=== PATIENT | male | born 1980 | race African-American/Black ===

== ENCOUNTER 2017-04-13 15:34 | Emergency (ER) | payer OTHER ==
[2017-04-13 15:48] VITALS: BP 155/81; PULSE 65; TEMP 98; BMI 27.1
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
== END 2017-04-13 16:24 | disposition home or self-care (01) ==
LOC: JER 15:34 → JERFT 15:34
DX: M54.5 Low back pain (principal); V49.49XA Driver injured in collision with other motor vehicles in traffic accident, initial encounter; Y92.415 Exit ramp or entrance ramp of street or highway as the place of occurrence of the external cause; Y99.0 Civilian activity done for income or pay; Y93.89 Activity, other specified
CPT/HCPCS: 99281-25

== ENCOUNTER 2017-11-06 19:30 | Emergency (ER) | payer OTHER ==
[2017-11-06 19:48] VITALS: BP 141/82; PULSE 75; TEMP 98.4; BMI 25.4
[2017-11-06] MEDS ORDERED: IBUPROFEN 400 MG TABLET (FP) PO ONE ×2 (20:18→20:19)
[2017-11-06] MEDS ORDERED: ONDANSETRON *ODT* 4 MG TABLET SL ONE (20:18)
--- NOTE | 2017-11-06 20:18 | PDOC ---
History of Present Illness - General Chief Complaint: Sore Throat Stated Complaint: SORE THROAT, WEAKNESS, COLD Time Seen by Provider: 11/06/17 20:09 Past History - Past Medical History Allergies/Adverse Reactions: Allergies Allergy/AdvReac Type Severity Reaction Status Date / Time No Known Allergies Allergy Verified 11/06/17 19:45 Home Medications: Ambulatory Orders No Home Medications 0 dose .ROUTE UTDICT 02/22/14 Ibuprofen 800 mg PO TID #30 tablet 11/06/17 Ondansetron [Zofran Odt -] 4 mg SL TID #10 od.tablet 11/06/17 Oseltamivir Phosphate [Tamiflu] 75 mg PO BID #10 capsule 11/06/17 Cardiac Disorders: Yes ('Heart murmer", "irregular heartbeat", "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") COPD: No - Immunization History Immunization Up to Date: Yes - Suicide/Smoking/Psychosocial Hx Smoking History: Never smoked Have you smoked in the past 12 months: No Information on smoking cessation initiated: No Hx Alcohol Use: No Drug/Substance Use Hx: No Substance Use Type: None *Physical Exam - Vital Signs Last Vital Signs Temp Pulse Resp BP Pulse Ox 98.4 F 75 18 141/82 98 11/06/17 19:46 11/06/17 19:46 11/06/17 19:46 11/06/17 19:46 11/06/17 19:46 *DC/Admit/Observation/Transfer Diagnosis at time of Disposition: Influenza - Discharge Dispostion Disposition: HOME Condition at time of disposition: Stable Admit: No - Referrals Referrals: Teddy Sellers [Primary Care Provider] - - Patient Instructions Printed Discharge Instructions: DI for Influenza -- Adult Additional Instructions: You have the flu. This is a viral illness. He will have symptoms for approximately 7-10 days. This is normal. Your prescribed Tamiflu. Please take this medication twice a day for 5 days to help lessen the severity of the symptoms. Please take Motrin 800 mg every 8 hours as needed for fever or sore throat. You were also prescribe Zofran. Please take this medication every 8 hours as needed for nausea. Drink plenty of fluids and get plenty of rest. Follow-up with her primary care doctor next week. Return to the emergency department if you have shortness of breath, difficulty breathing, dizziness, or any changes in your symptoms. - Post Discharge Activity Forms/Work/School Notes: Back to Work
[2017-11-06] MEDS ORDERED: ONDANSETRON *ODT* 4 MG TABLET ONE (20:19)
== END 2017-11-06 20:24 | disposition home or self-care (01) ==
LOC: JERFT 19:30
DX: J11.1 Influenza due to unidentified influenza virus with other respiratory manifestations (principal)
CPT/HCPCS: 99281-25